=== PATIENT | male | born 1975 | race Caucasian/White ===

== ENCOUNTER 2017-07-13 15:35 | Emergency (ER) | payer OTHER ==
[2017-07-13 15:42] VITALS: O2SAT 94
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
[2017-07-13 17:20] VITALS: BP 126/74; PULSE 76; RESP 16; TEMP 98.2
== END 2017-07-13 17:18 | disposition home or self-care (01) ==
PROC: 0HQ1XZZ Repair Face Skin, External Approach (ICD-10-PCS; principal; 2017-07-13)
DX: S01.81XA Laceration without foreign body of other part of head, initial encounter (principal); S60.221A Contusion of right hand, initial encounter; V18.4XXA Pedal cycle driver injured in noncollision transport accident in traffic accident, initial encounter; Y92.410 Unspecified street and highway as the place of occurrence of the external cause; Y93.55 Activity, bike riding